=== PATIENT | female | born 1960 | race Caucasian/White ===

== ENCOUNTER → 2019-02-02 | Outpatient (CLI) | payer OTHER ==
[~2019-02-02] VITALS: Ht 160 cm; Wt 104.5 kg
[~2019-02-02] MED LIST: ASPIR 8181 MG; NITROGLYCERIN0.4 MG SUBLING; NORCO 10-325 T1 EACH; PROTONIX40 M1; SKELAXIN 800 M800 M1; TOPROL XL25 MG; [UNRECOGNIZED DRUG - OTHER]
[2019-02-02 10:36] LABS: HEMATOCRIT 40.5 % (37.0-47.0); HEMOGLOBIN 13.4 gm/dL (12.0-15.0); MCH 28.6 pg (26.0-34.0); MCHC 33.2 g/dL (28.0-37.0); MCV 86.2 fL (80.0-100.0); MPV 8.7 fl. (7.2-11.1); RBC 4.69 mil/uL (4.20-5.00); RDW-CV 13.8 % (10.5-14.5); WBC 11.9 thou/uL (4.0-11.0)
[2019-02-02 10:44] LABS: ANION GAP 8 mmol/L (7-16); BUN 16 mg/dL (7-18); CALCIUM 9.5 mg/dL (8.5-10.1); CHLORIDE 106 mmol/L (98-107); CO2 29 mmol/L (21-32); CREATININE 0.7 mg/dL (0.6-1.3); GLUCOSE 87 mg/dL (70-99); POTASSIUM 3.9 mmol/L (3.5-5.1); SODIUM 143 mmol/L (136-145)
[2019-02-02 10:46] LABS: APTT 27.4 Seconds (25.0-31.3); SERUM ASSESSMENT Clear
[2019-02-02 10:49] LABS: CHOLESTEROL 195 mg/dL (<200); HDL CHOLESTEROL 81 mg/dL (>40); LDL CHOLESTEROL 103 mg/dL (<100); TC:HDL 2.4 Ratio (Not establshd); TRIGLYCERIDE 57 mg/dL (<150); VLDL 11 mg/dL (<40)
[2019-02-02 11:16] VITALS: BP 144/71
--- NOTE | 2019-02-02 14:37 | EKG ---
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
--- NOTE | 2019-02-02 17:09 | CARD ---
[address] [address] CARDIAC CATH REPORT Name: JENAE THEODORE Room: [facility]#: [id number] Admission: 02/02/19 Attend Phys: Gabe Mccain MD Discharge: Date of : 58 Report #: [id number] THIS REPORT FOR: //name// APPROVED REPORT Study performed: 02/02/2019 12:13:04 Patient Details The patient is a 58 year-old female Event Personnel Gabe Mccain Certified Detention Deputy, Felicita Smith RN Monitor, Primo Taylor (R) Boone Marlow Jill RN Technology Assistant Procedures Performed Coronary Angiography Only [id number] CORANG , Selective Right and Left Coronary Angiography Procedure Narrative The patient was brought electively to the Cardiac Catheterization Laboratory and was prepped and draped in a sterile manner. The right wrist was infiltrated with 1% Lidocaine subcutaneous anesthesia. A Slender Glidesheath sheath was inserted into the . Coronary angiography was performed using coronary diagnostic catheters. The right coronary system was accessed and visualized with a DCR: [place] 4.0 5fr catheter. The left coronary system was accessed and visualized with a JR4 5fr catheter. The patient tolerated the procedure well and there were no complications associated with the procedure. Intraoperative Conscious Sedation Fentanyl 25 mcg Dose: 1023 mGy Contrast Type and Amount: Omnipaque 90 ml Coronary Angiography The patient's coronary anatomy is right dominant. Diagnostic Cath Left Main Normal. Bifurcates into the LAD and circumflex. LAD Normal in the proximal mid and distal portion. Diagonal 1 Normal. Diagonal 2 Normal and small in caliber. Diagonal 3 [place] [address] CARDIAC CATH REPORT Name: JENAE THEODORE Room: [facility]#: [id number] Admission: 02/02/19 Attend Phys: Gabe Mccain MD Discharge: Date of : 58 Report #: [id number] Circumflex Normal in the proximal mid and distal portion. OM1 Normal. OM2 Normal. OM3 Normal. Right Coronary Normal in the proximal mid and distal portion. R PDA Normal. RPLV Normal. Left Ventriculography Left Ventriculography was not performed. Hemodynamics The aortic pressure is 136/69 mmHg with a mean of 95 mmHg. Conclusion 1. Normal coronary arteries. 2. Known severe aortic stenosis by echocardiogram. Recommendations 1. Referred for transcutaneous aortic valve replacement versus surgical replacement. <ELECTRONICALLY SIGNED> By: Gabe Mccain MD, [facility] 02/02/19 1708 07 1708Micjuanita Mccain MD, FACC /INF
== END | disposition home or self-care (01) ==
LOC: M.CL 01-30 15:00
PROVIDERS: Internal Medicine Cardiovascular Disease
DX: I35.0 Nonrheumatic aortic (valve) stenosis (principal); I48.91 Unspecified atrial fibrillation; Z98.890 Other specified postprocedural states; Z79.82 Long term (current) use of aspirin; Z79.899 Other long term (current) drug therapy

== ENCOUNTER 2019-11-28 02:57 | Emergency (ER) | payer OTHER ==
[~2019-11-28] VITALS: Ht 160 cm; Wt 110.3 kg
[2019-11-28] MEDS ORDERED: BLOOD THINNER (03:09)
[2019-11-28] MEDS ORDERED: XARELTO20 MG PO (03:11)
[2019-11-28 03:26] LABS: URINE BILIRUBIN NEGATIVE (Negative); URINE BLOOD NEGATIVE (Negative); URINE CLARITY CLEAR; URINE COLOR YELLOW; URINE GLUCOSE-RANDOM NEGATIVE (Negative); URINE KETONES NEGATIVE (Negative); URINE LEUKOCYTES-REFLEX 1+ (Negative); URINE NITRITE-REFLEX NEGATIVE (Negative); URINE PROTEIN NEGATIVE (Negative); URINE SPECIFIC GRAVITY 1.015 (1.005-1.030); URINE UROBILINOGEN 0.2 E.U./dl (0.2-1.0)
[2019-11-28 03:33] LABS: ABSOLUTE BASOPHILS 0.1 thou/uL (0.0-0.2); ABSOLUTE EOSINOPHILS 0.2 thou/uL (0.0-0.7); ABSOLUTE LYMPHOCYTES 1.9 thou/uL (0.8-5.3); ABSOLUTE MONOCYTES 0.7 thou/uL (0.0-1.2); ABSOLUTE NEUTROPHILS 5.8 thou/uL (1.6-8.1); BASOPHILS 1.2 %; EOSINOPHILS 1.8 %; HEMATOCRIT 40.1 % (37.0-47.0); HEMOGLOBIN 13.7 gm/dL (12.0-15.0); LYMPHOCYTES 21.4 %; MCHC 34.2 g/dL (28.0-37.0); MONOCYTES 8.6 %; MPV 8.3 fl. (7.2-11.1); NUCLEATED RBCS 0 /100WBC; PLATELET COUNT* 218 thou/uL (150-400); RBC 4.72 mil/uL (4.20-5.00); WBC 8.6 thou/uL (4.0-11.0)
[2019-11-28 03:45] LABS: CALCIUM 8.9 mg/dL (8.5-10.1); CREATININE 0.8 mg/dL (0.6-1.3); POTASSIUM 3.8 mmol/L (3.5-5.1)
[2019-11-28 03:48] LABS: INR 1.2; PROTIME 11.8 Seconds (9.20-11.50)
[2019-11-28 03:55] LABS: ALBUMIN 3.5 g/dL (3.4-5.0); MAGNESIUM 1.9 mg/dL (1.8-2.4); TOTAL BILIRUBIN 0.3 mg/dL (<0.1-1.0); TOTAL PROTEIN 7.1 g/dL (6.4-8.2)
[2019-11-28 04:04] LABS: CASTS None Seen /LPF (None Seen); SQUAMOUS >10 Many /LPF (0-3)
[2019-11-28 04:07] LABS: BACTERIA-REFLEX 1-9 Few /HPF (None Seen); CRYSTALS None Seen /LPF (None Seen); RENAL EPITHELIAL CELLS 4-10 Moderate /LPF (None Seen); URINE RBC 0-2 Rare /HPF (0-2); URINE WBC-REFLEX 6-15 Few /HPF (0-5)
[2019-11-28 06:22] VITALS: BP 123/71
--- NOTE | 2019-11-28 10:50 | EKG ---
[place] [address] ELECTROCARDIOGRAM REPORT Name: JENAE THEODORE Room: [facility]#: [id number] Admission: 11/28/19 Attend Phys: Discharge: 11/28/19 Date of : 58 Date of Service: 11/28/19 0259 Report #: [id number] THIS REPORT FOR: //name// [facility] ED Test Date: 2019-11-28 Test Time: 02:59:56 Pat Name: JENAE THEODORE Department: Room: Gender: F Recruiting Specialist: KRISTEN : 1960 Requested By: Isis Warner Order Number: [id number] MD: Farhat Jacome Measurements Intervals [place] Rate: 69 P: 42 CO: 138 QRS: 35 QRSD: 93 T: 35 QT: 375 QTc: 402 Interpretive Statements Sinus rhythm Compared to ECG 02/02/2019 10:46:12 Sinus bradycardia no longer present Electronically Signed On 11-28-2019 10:48:45 CDT by Farhat Jacome [email or web address] <ELECTRONICALLY SIGNED> By: Farhat Jacome MD, [facility] 11/28/19 1048 0259 0259 Farhat Jacome MD, [facility] /EPI
== END 2019-11-28 06:22 | disposition home or self-care (01) ==
LOC: M.ERS 02:57
PROVIDERS: Emergency Medicine
DX: R07.89 Other chest pain (principal); I48.91 Unspecified atrial fibrillation